=== PATIENT | male | born 1950 | race Caucasian/White ===

== ENCOUNTER 2019-03-16 15:04 | Inpatient (IN) | payer MEDICARE ==
[~2019-03-16] VITALS: Ht 185.4 cm; Wt 79.9 kg
[~2019-03-16 15:04] MED LIST: ACET325T26 PO; AMLO-150 PO; APIX5TAB PO; CHLO25TA PO; ENAL10TA PO; FLEC100T PO; HYDR-3343 PO; LABE100T6 PO
[2019-03-16] MEDS ORDERED: ONDANSETRON 2MG/ML, 2ML IVPush ONE (16:00)
[2019-03-16] MEDS ORDERED: morphine SULFATE 10 MG/ML, 1ML IVPush ONE (16:00)
[2019-03-16 16:04] LABS: MEAN CORPUSCULAR HEMOGLOBIN 28.8 pg (27.5-34.5); MEAN CORPUSCULAR HGB CONC 33.4 g/dL (33.2-36.2); MEAN PLATELET VOLUME 7.3 fL (7.4-10.4); PLATELET COUNT 372 x10^3/uL (130-400); RED BLOOD COUNT 4.56 x10^6/uL (4.38-5.82); RED CELL DISTRIBUTION WIDTH 14.8 % (9.4-14.8)
[2019-03-16 16:11] LABS: ALBUMIN 3.7 g/dL (3.4-5.0); ANION GAP 9 mmol/L (5-15); CALCIUM 9.4 mg/dL (8.5-10.1); CHLORIDE 109 mmol/L (98-107); CREATININE 1.46 mg/dL (0.7-1.3)
[2019-03-16] MEDS ORDERED: MORPHINE SULFATE 4 MG/ML, 1ML ONE (16:13)
[2019-03-16] MEDS ORDERED: ONDANSETRON 2MG/ML, 2ML ONE (16:13)
[2019-03-16 16:15] LABS: TROPONIN I < 0.015 ng/mL (0.000-0.045)
[2019-03-16 16:19] LABS: PROTHROMBIN TIME 10.5 Seconds (9.6-11.5)
[2019-03-16] MEDS ORDERED: LIDOCAINE 1%, 10ML ONE (16:20)
--- NOTE | 2019-03-16 16:23 | NUR ---
IR AT BEDSIDE FOR ANGIOGRAM PRE-EVAL. TO DO [facility] STUDY
[2019-03-16] MEDS ORDERED: FENTANYL PF 100 MCG/2ML ONE (16:38)
[2019-03-16] MEDS ORDERED: NALOXONE 1 MG/ML, 2ML ONE (16:39)
[2019-03-16] MEDS ORDERED: MIDAZOLAM 1 MG/ML, 5ML ONE (16:39)
[2019-03-16] MEDS ORDERED: NITROGLYCERIN 5 MG/ML, 10ML ONE (16:39)
[2019-03-16] MEDS ORDERED: FLUMAZENIL 0.1 MG/1 ML, 5ML ONE (16:39)
[2019-03-16] MEDS ORDERED: HEPARIN 1,000 UNITS/ML, 10ML ONE (16:39)
[2019-03-16] MEDS ORDERED: PROTAMINE SULFATE 10 MG/ML, 25ML ONE (16:39)
--- NOTE | 2019-03-16 16:39 | NUR ---
PT TO IR
[2019-03-16] MEDS ORDERED: hydrALAzine 20 MG/ML, 1ML ONE (16:54)
[2019-03-16] MEDS ORDERED: SODIUM CHLORIDE 0.9% 1,000 ML IV SCH (16:56)
[2019-03-16] MEDS ORDERED: ACETAMINOPHEN 325 MG TABLET PO PRN (17:00)
[2019-03-16] MEDS ORDERED: LABETALOL 5MG/ML, 20ML IVPush PRN (17:00)
[2019-03-16] MEDS ORDERED: hydrALAzine 20 MG/ML, 1ML IVPush PRN (17:00)
[2019-03-16] MEDS ORDERED: MORPHINE SULFATE 4 MG/ML, 1ML IVPush PRN (17:00)
[2019-03-16] MEDS ORDERED: HYDROcodone/APAP 5/325 TABLET PO PRN (17:00)
[2019-03-16] MEDS ORDERED: ONDANSETRON 2MG/ML, 2ML IVPush PRN ×2 (17:00→18:30)
[2019-03-16 17:02] LABS: MD YES
[2019-03-16 17:03] LABS: <PLATELET ESTIMATE> ADEQUATE; <PLT MORPHOLOGY> NORMAL PLT MORPH; ANISOCYTOSIS 1+; BAND#(MANUAL) 1.72 x10^3/uL; BANDS%(MANUAL) 14 % (0-7); LYMPH#(MANUAL) 1.35 x10^3/uL (1-3.4); LYMPHS% (MANUAL) 11 % (22-44); MONOS#(MANUAL) 0.49 x10^3/uL (0.3-2.7); MONOS% (MANUAL) 4 % (2-9); SEG#(MANUAL) 8.73 x10^3/uL (1.8-6.8); SEGS% (MANUAL) 71 % (42-75)
[2019-03-16] MEDS ORDERED: HEPARIN 5,000 UNITS/ML, 1ML ONE (17:20)
[2019-03-16] MEDS ORDERED: HEPARIN 25,000 UNITS/500ML PMX 500 ML ONE (17:21)
[2019-03-16] MEDS ORDERED: CATHFLO-ALTEPLASE 2 MG/2 ML CATHFLUSH ONE (17:30)
[2019-03-16] MEDS ORDERED: ALTEPLASE 10 MG in SODIUM CHLORIDE 0.9% 90 ML IV SCH (17:30)
[2019-03-16] MEDS ORDERED: ALTEPLASE IV ONE (18:00)
[2019-03-16] MEDS ORDERED: SODIUM CHLORIDE 0.9% IV ONE (18:00)
[2019-03-16] MEDS ORDERED: hydrALAzine 20 MG/ML, 1ML IV PRN (18:30)
[2019-03-16] MEDS ORDERED: morphine SULFATE 10 MG/ML, 1ML IVPush PRN (18:30)
[2019-03-16] MEDS ORDERED: HEPARIN 25,000 UNITS/500ML PMX 500 ML IV PRN (18:30)
[2019-03-16] MEDS: AMLODIPINE 5 MG TABLET PO SCH (19:29)
[2019-03-16] MEDS: FLECAINIDE 100MG TABLET PO SCH (19:29)
[2019-03-16] MEDS: ENALAPRIL 20MG TABLET PO SCH (19:29)
[2019-03-16] MEDS: CEFAZOLIN 2,000 MG in SODIUM CHLORIDE 0.9% 50 ML IV SCH (19:30)
[2019-03-16] MEDS: SODIUM CHLORIDE 0.9% 1,000 ML IV SCH (19:31)
[2019-03-16] MEDS ORDERED: LABETALOL 200 MG TABLET PO SCH (21:00)
[2019-03-16] MEDS ORDERED: ENALAPRIL 10 MG TABLET PO SCH (21:00)
[2019-03-16] MEDS: ALTEPLASE 10 MG in SODIUM CHLORIDE 0.9% 90 ML IV PRN (23:30)
[2019-03-16] MEDS: HYDROcodone/APAP 5/325 TABLET PO PRN (23:53)
[2019-03-17 00:27] LABS: BASOPHILS # (AUTO) 0.01 x10^3/uL (0-0.1); BASOPHILS % (AUTO) 0 % (0-1); EOSINOPHILS # (AUTO) 0.02 x10^3/uL (0-0.4); EOSINOPHILS % (AUTO) 0 % (1-7); LYMPHOCYTES # (AUTO) 1.56 x10^3/uL (1-3.4); LYMPHOCYTES % (AUTO) 22 % (22-44); MD NO; MEAN CORPUSCULAR HEMOGLOBIN 28.4 pg (27.5-34.5); MEAN CORPUSCULAR HGB CONC 32.4 g/dL (33.2-36.2); MEAN CORPUSCULAR VOLUME 87.5 fL (81-97); MEAN PLATELET VOLUME 7.3 fL (7.4-10.4); MONOCYTES # (AUTO) 0.85 x10^3/uL (0.2-0.8); MONOCYTES % (AUTO) 12 % (2-9); NEUTROPHILS # (AUTO) 4.65 x10^3/uL (1.8-6.8); NEUTROPHILS % (AUTO) 66 % (42-75); PLATELET COUNT 317 x10^3/uL (130-400); RED BLOOD COUNT 4.28 x10^6/uL (4.38-5.82); RED CELL DISTRIBUTION WIDTH 15.6 % (9.4-14.8)
[2019-03-17 00:58] LABS: PROTHROMBIN TIME 10.5 Seconds (9.6-11.5)
[2019-03-17] MEDS ORDERED: PROPOFOL 100 ML IV ONE (01:10)
[2019-03-17] MEDS: CEFAZOLIN 2,000 MG in SODIUM CHLORIDE 0.9% 50 ML IV SCH ×3 (03:25→21:04)
[2019-03-17] MEDS: SODIUM CHLORIDE 0.9% 1,000 ML IV SCH ×2 (05:56→15:04)
[2019-03-17 07:00] LABS: BASOPHILS # (AUTO) 0.02 x10^3/uL (0-0.1); BASOPHILS % (AUTO) 0 % (0-1); EOSINOPHILS # (AUTO) 0.13 x10^3/uL (0-0.4); EOSINOPHILS % (AUTO) 2 % (1-7); LYMPHOCYTES # (AUTO) 1.34 x10^3/uL (1-3.4); LYMPHOCYTES % (AUTO) 19 % (22-44); MD NO; MEAN CORPUSCULAR HGB CONC 32.7 g/dL (33.2-36.2); MEAN CORPUSCULAR VOLUME 88.6 fL (81-97); MEAN PLATELET VOLUME 7.2 fL (7.4-10.4); MONOCYTES # (AUTO) 0.84 x10^3/uL (0.2-0.8); MONOCYTES % (AUTO) 12 % (2-9); NEUTROPHILS # (AUTO) 4.88 x10^3/uL (1.8-6.8); NEUTROPHILS % (AUTO) 68 % (42-75); PLATELET COUNT 293 x10^3/uL (130-400); RED BLOOD COUNT 4.38 x10^6/uL (4.38-5.82); RED CELL DISTRIBUTION WIDTH 15.3 % (9.4-14.8)
[2019-03-17 07:07] LABS: ALANINE AMINOTRANSFERASE 36 U/L (12-78); ALBUMIN 3.4 g/dL (3.4-5.0); ANION GAP 11 mmol/L (5-15); CALCIUM 8.6 mg/dL (8.5-10.1); CHLORIDE 111 mmol/L (98-107); CREATININE 1.17 mg/dL (0.7-1.3); INTERNATIONAL NORMALIZED RATIO 1.03 (0.93-1.1); PROTHROMBIN TIME 10.8 Seconds (9.6-11.5)
[2019-03-17 07:09] LABS: ALKALINE PHOSPHATASE 69 U/L (45-117); BILIRUBIN,TOTAL 0.5 mg/dL (0.2-1.0); TOTAL PROTEIN 6.7 g/dL (6.4-8.2)
[2019-03-17] MEDS: ENALAPRIL 20MG TABLET PO SCH ×2 (08:20→21:03)
[2019-03-17] MEDS: FLECAINIDE 100MG TABLET PO SCH ×2 (08:20→21:03)
[2019-03-17] MEDS: AMLODIPINE 5 MG TABLET PO SCH ×2 (08:21→21:03)
[2019-03-17] MEDS ORDERED: AMLODIPINE 5 MG TABLET PO SCH (09:00)
[2019-03-17] MEDS ORDERED: CHLORTHALIDONE 25 MG TABLET PO SCH (09:00)
[2019-03-17] MEDS: ALTEPLASE 10 MG in SODIUM CHLORIDE 0.9% 90 ML IV PRN (09:29)
[2019-03-17 13:01] LABS: BASOPHILS # (AUTO) 0.02 x10^3/uL (0-0.1); BASOPHILS % (AUTO) 0 % (0-1); EOSINOPHILS # (AUTO) 0.07 x10^3/uL (0-0.4); EOSINOPHILS % (AUTO) 1 % (1-7); LYMPHOCYTES # (AUTO) 1.45 x10^3/uL (1-3.4); LYMPHOCYTES % (AUTO) 18 % (22-44); MD NO; MEAN CORPUSCULAR HEMOGLOBIN 28.4 pg (27.5-34.5); MEAN CORPUSCULAR HGB CONC 32.9 g/dL (33.2-36.2); MEAN CORPUSCULAR VOLUME 86.2 fL (81-97); MEAN PLATELET VOLUME 7.1 fL (7.4-10.4); MONOCYTES # (AUTO) 0.89 x10^3/uL (0.2-0.8); MONOCYTES % (AUTO) 11 % (2-9); NEUTROPHILS # (AUTO) 5.49 x10^3/uL (1.8-6.8); NEUTROPHILS % (AUTO) 69 % (42-75); PLATELET COUNT 316 x10^3/uL (130-400); RED BLOOD COUNT 4.37 x10^6/uL (4.38-5.82); RED CELL DISTRIBUTION WIDTH 15.2 % (9.4-14.8)
[2019-03-17 13:27] LABS: INTERNATIONAL NORMALIZED RATIO 0.98 (0.93-1.1); PROTHROMBIN TIME 10.3 Seconds (9.6-11.5)
[2019-03-17] MEDS ORDERED: MIDAZOLAM 1 MG/ML, 5ML ONE (16:46)
[2019-03-17] MEDS ORDERED: FENTANYL PF 100 MCG/2ML ONE (16:46)
[2019-03-17] MEDS ORDERED: FLUMAZENIL 0.1 MG/1 ML, 5ML ONE (16:46)
[2019-03-17] MEDS ORDERED: NALOXONE 1 MG/ML, 2ML ONE (16:47)
[2019-03-17] MEDS ORDERED: HEPARIN 1,000 UNITS/ML, 10ML ONE (16:47)
[2019-03-17] MEDS ORDERED: PROTAMINE SULFATE 10 MG/ML, 25ML ONE (16:47)
[2019-03-17] MEDS ORDERED: SODIUM CHLORIDE 0.9% 1,000 ML IV SCH (16:56)
[2019-03-17] MEDS ORDERED: VISIPAQUE 270 MG/ML, 50ML BOTTLE ONE (17:00)
[2019-03-17] MEDS ORDERED: LIDOCAINE 1%, 10ML ONE (17:11)
[2019-03-17] MEDS ORDERED: hydrALAzine 20 MG/ML, 1ML ONE (17:34)
[2019-03-17] MEDS ORDERED: HEPARIN 5,000 UNITS/ML, 1ML IV ONE (19:00)
[2019-03-17] MEDS ORDERED: HEPARIN 5,000 UNITS/ML, 1ML IV PRN (19:00)
[2019-03-17] MEDS ORDERED: HEPARIN wt. based STROKE protocol MC SCH (19:00)
[2019-03-17] MEDS ORDERED: HEPARIN 25,000 UNITS/500ML PMX 500 ML IV PRN (19:00)
[2019-03-17] MEDS ORDERED: DO NOT GIVE XX PRN (19:00)
[2019-03-17] MEDS ORDERED: WARFARIN 5 MG TABLET PO-COUM ONE (19:30)
[2019-03-17] MEDS ORDERED: HEPARIN wt. based STROKE protocol MC PRN (19:30)
[2019-03-17] MEDS: HEPARIN 25,000 UNITS/500ML PMX 500 ML IV PRN (21:28)
[2019-03-17] MEDS: HYDROcodone/APAP 5/325 TABLET PO PRN (22:05)
[2019-03-18 03:34] LABS: BASOPHILS # (AUTO) 0.01 x10^3/uL (0-0.1); BASOPHILS % (AUTO) 0 % (0-1); EOSINOPHILS # (AUTO) 0.08 x10^3/uL (0-0.4); EOSINOPHILS % (AUTO) 1 % (1-7); LYMPHOCYTES # (AUTO) 1.76 x10^3/uL (1-3.4); LYMPHOCYTES % (AUTO) 25 % (22-44); MD NO; MEAN CORPUSCULAR HEMOGLOBIN 28.8 pg (27.5-34.5); MEAN CORPUSCULAR HGB CONC 32.7 g/dL (33.2-36.2); MEAN CORPUSCULAR VOLUME 87.9 fL (81-97); MEAN PLATELET VOLUME 7.4 fL (7.4-10.4); MONOCYTES # (AUTO) 0.85 x10^3/uL (0.2-0.8); MONOCYTES % (AUTO) 12 % (2-9); NEUTROPHILS # (AUTO) 4.35 x10^3/uL (1.8-6.8); NEUTROPHILS % (AUTO) 62 % (42-75); PLATELET COUNT 301 x10^3/uL (130-400); RED BLOOD COUNT 4.17 x10^6/uL (4.38-5.82); RED CELL DISTRIBUTION WIDTH 15.5 % (9.4-14.8)
[2019-03-18 03:43] LABS: INTERNATIONAL NORMALIZED RATIO 1.06 (0.93-1.1); PROTHROMBIN TIME 11.1 Seconds (9.6-11.5)
[2019-03-18 03:48] LABS: ALANINE AMINOTRANSFERASE 27 U/L (12-78); ANION GAP 8 mmol/L (5-15); CALCIUM 8.7 mg/dL (8.5-10.1); CHLORIDE 112 mmol/L (98-107)
[2019-03-18 03:50] LABS: ALKALINE PHOSPHATASE 67 U/L (45-117); BILIRUBIN,TOTAL 0.8 mg/dL (0.2-1.0); CREATININE 1.14 mg/dL (0.7-1.3); TOTAL PROTEIN 6.5 g/dL (6.4-8.2)
[2019-03-18] MEDS: CEFAZOLIN 2,000 MG in SODIUM CHLORIDE 0.9% 50 ML IV SCH ×2 (04:39→11:47)
[2019-03-18] MEDS: SODIUM CHLORIDE 0.9% 1,000 ML IV SCH (07:39)
[2019-03-18] MEDS: ENALAPRIL 20MG TABLET PO SCH ×2 (07:40→19:39)
[2019-03-18] MEDS: FLECAINIDE 100MG TABLET PO SCH ×2 (07:40→19:39)
[2019-03-18] MEDS: AMLODIPINE 5 MG TABLET PO SCH ×2 (07:40→19:39)
[2019-03-18] MEDS: LABETALOL 200 MG TABLET PO SCH (15:34)
[2019-03-18] MEDS ORDERED: MORPHINE SULFATE 4 MG/ML, 1ML IVPush PRN (18:00)
[2019-03-18] MEDS ORDERED: WARFARIN 5 MG TABLET PO-COUM SCH (18:00)
[2019-03-18] MEDS: HEPARIN 25,000 UNITS/500ML PMX 500 ML IV PRN (19:48)
[2019-03-18] MEDS: HYDROcodone/APAP 5/325 TABLET PO PRN ×2 (19:51→23:17)
[2019-03-19 01:04] LABS: BASOPHILS # (AUTO) 0.01 x10^3/uL (0-0.1); BASOPHILS % (AUTO) 0 % (0-1); EOSINOPHILS % (AUTO) 2 % (1-7); LYMPHOCYTES # (AUTO) 1.83 x10^3/uL (1-3.4); LYMPHOCYTES % (AUTO) 30 % (22-44); MD NO; MEAN CORPUSCULAR HEMOGLOBIN 29.1 pg (27.5-34.5); MEAN CORPUSCULAR HGB CONC 33.1 g/dL (33.2-36.2); MEAN CORPUSCULAR VOLUME 87.7 fL (81-97); MEAN PLATELET VOLUME 7.2 fL (7.4-10.4); MONOCYTES # (AUTO) 0.77 x10^3/uL (0.2-0.8); MONOCYTES % (AUTO) 13 % (2-9); NEUTROPHILS # (AUTO) 3.37 x10^3/uL (1.8-6.8); NEUTROPHILS % (AUTO) 56 % (42-75); PLATELET COUNT 299 x10^3/uL (130-400); RED BLOOD COUNT 3.71 x10^6/uL (4.38-5.82); RED CELL DISTRIBUTION WIDTH 14.8 % (9.4-14.8)
[2019-03-19 01:14] LABS: ANION GAP 6 mmol/L (5-15); CALCIUM 8.4 mg/dL (8.5-10.1); CHLORIDE 109 mmol/L (98-107); CREATININE 1.21 mg/dL (0.7-1.3)
[2019-03-19 01:33] LABS: INTERNATIONAL NORMALIZED RATIO 1.96 (0.93-1.1); PROTHROMBIN TIME 20.1 Seconds (9.6-11.5)
[2019-03-19] MEDS: LABETALOL 200 MG TABLET PO SCH ×2 (08:02→17:35)
[2019-03-19] MEDS: FLECAINIDE 100MG TABLET PO SCH ×2 (08:02→19:33)
[2019-03-19] MEDS: AMLODIPINE 5 MG TABLET PO SCH ×2 (08:46→19:32)
[2019-03-19] MEDS: CHLORTHALIDONE 25 MG TABLET PO SCH (08:46)
[2019-03-19] MEDS: ENALAPRIL 20MG TABLET PO SCH ×2 (08:47→19:33)
[2019-03-19] MEDS ORDERED: WARFARIN 1 MG TABLET PO-COUM ONE (16:17)
[2019-03-19] MEDS: HEPARIN 25,000 UNITS/500ML PMX 500 ML IV PRN (16:38)
[2019-03-19] MEDS ORDERED: WARFARIN 2.5 MG TABLET PO-COUM SCH (18:00)
[2019-03-19] MEDS ORDERED: CALCIUM CARBONATE 500 MG TAB.CHEW PO PRN (19:00)
[2019-03-20 04:32] LABS: BASOPHILS # (AUTO) 0.02 x10^3/uL (0-0.1); BASOPHILS % (AUTO) 0 % (0-1); EOSINOPHILS # (AUTO) 0.23 x10^3/uL (0-0.4); EOSINOPHILS % (AUTO) 3 % (1-7); LYMPHOCYTES # (AUTO) 1.78 x10^3/uL (1-3.4); LYMPHOCYTES % (AUTO) 27 % (22-44); MD NO; MEAN CORPUSCULAR VOLUME 87.8 fL (81-97); MEAN PLATELET VOLUME 7.8 fL (7.4-10.4); MONOCYTES # (AUTO) 0.63 x10^3/uL (0.2-0.8); MONOCYTES % (AUTO) 9 % (2-9); NEUTROPHILS # (AUTO) 3.99 x10^3/uL (1.8-6.8); NEUTROPHILS % (AUTO) 60 % (42-75); PLATELET COUNT 305 x10^3/uL (130-400); RED CELL DISTRIBUTION WIDTH 15.3 % (9.4-14.8)
[2019-03-20 04:40] LABS: INTERNATIONAL NORMALIZED RATIO 1.96 (0.93-1.1); PROTHROMBIN TIME 20.1 Seconds (9.6-11.5)
[2019-03-20 04:45] LABS: ANION GAP 7 mmol/L (5-15); CHLORIDE 108 mmol/L (98-107); CREATININE 1.31 mg/dL (0.7-1.3)
[2019-03-20] MEDS: FLECAINIDE 100MG TABLET PO SCH ×2 (07:46→21:44)
[2019-03-20] MEDS: LABETALOL 200 MG TABLET PO SCH ×2 (07:46→18:20)
[2019-03-20] MEDS: CHLORTHALIDONE 25 MG TABLET PO SCH (09:14)
[2019-03-20] MEDS: AMLODIPINE 5 MG TABLET PO SCH ×2 (09:15→21:44)
[2019-03-20] MEDS: ENALAPRIL 20MG TABLET PO SCH ×2 (09:15→21:44)
[2019-03-20] MEDS: HEPARIN 25,000 UNITS/500ML PMX 500 ML IV PRN (09:21)
[2019-03-20] MEDS ORDERED: WARFARIN 5 MG TABLET PO-COUM SCH (18:00)
[2019-03-20 20:13] VITALS: BP 127/58
[2019-03-20 21:33] VITALS: BP 127/51
[2019-03-20 22:43] VITALS: BP 126/61
[2019-03-21] VITALS (8 sets, daily range): BP systolic 104–160; BP diastolic 49–68
[2019-03-21] MEDS: HEPARIN 25,000 UNITS/500ML PMX 500 ML IV PRN ×2 (03:02→20:36)
[2019-03-21 05:28] LABS: BASOPHILS # (AUTO) 0.02 x10^3/uL (0-0.1); BASOPHILS % (AUTO) 0 % (0-1); EOSINOPHILS # (AUTO) 0.16 x10^3/uL (0-0.4); EOSINOPHILS % (AUTO) 2 % (1-7); LYMPHOCYTES % (AUTO) 26 % (22-44); MD NO; MEAN CORPUSCULAR HEMOGLOBIN 28.4 pg (27.5-34.5); MEAN CORPUSCULAR VOLUME 86.1 fL (81-97); MEAN PLATELET VOLUME 7.5 fL (7.4-10.4); MONOCYTES # (AUTO) 0.54 x10^3/uL (0.2-0.8); MONOCYTES % (AUTO) 8 % (2-9); NEUTROPHILS # (AUTO) 4.51 x10^3/uL (1.8-6.8); NEUTROPHILS % (AUTO) 64 % (42-75); PLATELET COUNT 325 x10^3/uL (130-400); RED BLOOD COUNT 3.93 x10^6/uL (4.38-5.82); RED CELL DISTRIBUTION WIDTH 15.3 % (9.4-14.8)
[2019-03-21 05:39] LABS: ANION GAP 9 mmol/L (5-15); CALCIUM 9.3 mg/dL (8.5-10.1); CHLORIDE 108 mmol/L (98-107)
[2019-03-21 05:56] LABS: INTERNATIONAL NORMALIZED RATIO 1.94 (0.93-1.1); PROTHROMBIN TIME 19.9 Seconds (9.6-11.5)
[2019-03-21] MEDS: FLECAINIDE 100MG TABLET PO SCH ×2 (08:43→19:57)
[2019-03-21] MEDS: LABETALOL 200 MG TABLET PO SCH ×2 (08:45→17:23)
[2019-03-21] MEDS: AMLODIPINE 5 MG TABLET PO SCH ×3 (08:45→20:27)
[2019-03-21] MEDS: CHLORTHALIDONE 25 MG TABLET PO SCH (08:46)
[2019-03-21] MEDS: ENALAPRIL 20MG TABLET PO SCH ×3 (08:46→22:25)
[2019-03-21] MEDS ORDERED: HEPARIN 5,000 UNITS/ML, 1ML IV PRN (09:00)
[2019-03-21] MEDS ORDERED: HEPARIN 5,000 UNITS/ML, 1ML IV ONE (09:00)
[2019-03-21 15:25] LABS: TROPONIN I < 0.015 ng/mL (0.000-0.045)
[2019-03-21] MEDS ORDERED: WARFARIN 7.5 MG TABLET PO-COUM ONE (18:00)
[2019-03-21 20:26] LABS: TROPONIN I < 0.015 ng/mL (0.000-0.045)
[2019-03-22 01:20] VITALS: BP 123/55
[2019-03-22 01:31] LABS: TROPONIN I < 0.015 ng/mL (0.000-0.045)
[2019-03-22 06:54] VITALS: BP 131/54
[2019-03-22 07:20] LABS: BASOPHILS # (AUTO) 0.02 x10^3/uL (0-0.1); BASOPHILS % (AUTO) 0 % (0-1); EOSINOPHILS # (AUTO) 0.18 x10^3/uL (0-0.4); EOSINOPHILS % (AUTO) 2 % (1-7); LYMPHOCYTES # (AUTO) 1.74 x10^3/uL (1-3.4); LYMPHOCYTES % (AUTO) 23 % (22-44); MD NO; MEAN CORPUSCULAR HEMOGLOBIN 28.7 pg (27.5-34.5); MEAN CORPUSCULAR VOLUME 87.1 fL (81-97); MEAN PLATELET VOLUME 7.8 fL (7.4-10.4); MONOCYTES % (AUTO) 8 % (2-9); NEUTROPHILS # (AUTO) 5.04 x10^3/uL (1.8-6.8); NEUTROPHILS % (AUTO) 67 % (42-75); PLATELET COUNT 337 x10^3/uL (130-400); RED BLOOD COUNT 3.74 x10^6/uL (4.38-5.82); RED CELL DISTRIBUTION WIDTH 15.3 % (9.4-14.8)
[2019-03-22 07:30] LABS: ANION GAP 9 mmol/L (5-15); CALCIUM 9.1 mg/dL (8.5-10.1); CHLORIDE 104 mmol/L (98-107)
[2019-03-22 07:31] LABS: CREATININE 1.68 mg/dL (0.7-1.3)
[2019-03-22 08:19] LABS: INTERNATIONAL NORMALIZED RATIO 3.65 (0.93-1.1); PROTHROMBIN TIME 36.5 Seconds (9.6-11.5)
[2019-03-22] MEDS: LABETALOL 200 MG TABLET PO SCH ×2 (08:57→18:14)
[2019-03-22] MEDS: FLECAINIDE 100MG TABLET PO SCH ×2 (08:57→20:33)
[2019-03-22] MEDS: CHLORTHALIDONE 25 MG TABLET PO SCH (08:58)
[2019-03-22] MEDS: ENALAPRIL 20MG TABLET PO SCH ×2 (08:58→20:32)
[2019-03-22] MEDS: AMLODIPINE 5 MG TABLET PO SCH ×2 (08:58→20:33)
[2019-03-22] MEDS ORDERED: FLU VACC QS2019-20 36MOS UP/PF 0.5 ML IM-VACC ONE (10:30)
[2019-03-22] MEDS ORDERED: HOLD COUMADIN MC PRN (12:00)
[2019-03-22 12:24] VITALS: BP 116/52
[2019-03-22] MEDS: HEPARIN 25,000 UNITS/500ML PMX 500 ML IV PRN (15:26)
[2019-03-22 18:15] VITALS: BP 120/56
[2019-03-22 19:44] VITALS: BP 115/57
[2019-03-22 20:26] VITALS: BP 127/55
[2019-03-23 01:20] VITALS: BP 105/50
[2019-03-23 05:39] LABS: INTERNATIONAL NORMALIZED RATIO 3.5 (0.93-1.1)
[2019-03-23 07:03] VITALS: BP 128/51
[2019-03-23] MEDS ORDERED: WARF1TAB PO (07:32)
[2019-03-23] MEDS ORDERED: AMLO-150 PO (07:32)
[2019-03-23] MEDS ORDERED: HOLD COUMADIN MC PRN (08:30)
[2019-03-23] MEDS: AMLODIPINE 5 MG TABLET PO SCH (09:13)
[2019-03-23] MEDS: FLECAINIDE 100MG TABLET PO SCH (09:13)
[2019-03-23] MEDS: ENALAPRIL 20MG TABLET PO SCH (09:13)
[2019-03-23] MEDS: LABETALOL 200 MG TABLET PO SCH (09:13)
[2019-03-23] MEDS: CHLORTHALIDONE 25 MG TABLET PO SCH (09:14)
== END 2019-03-23 11:25 | disposition home health service (06) | DRG 252 ==
LOC: ED 16:23 → EDIP 16:24 → ED 16:35 → CCU 17:46 → 4WST 03-20 19:36 → DCLOUNGE 03-23 11:04
PROVIDERS: ADMIT Internal Medicine; ATTEND Internal Medicine
PROC: 047J3DZ Dilation of Left External Iliac Artery with Intraluminal Device, Percutaneous Approach (ICD-10-PCS; principal; 2019-03-16)
PROC: B44FZZZ Ultrasonography of Right Lower Extremity Arteries (ICD-10-PCS; 2019-03-16)
PROC: 04HN33Z Insertion of Infusion Device into Left Popliteal Artery, Percutaneous Approach (ICD-10-PCS; 2019-03-16)
PROC: 3E05317 Introduction of Other Thrombolytic into Peripheral Artery, Percutaneous Approach (ICD-10-PCS; 2019-03-16)
PROC: B41DYZZ Fluoroscopy of Aorta and Bilateral Lower Extremity Arteries using Other Contrast (ICD-10-PCS; 2019-03-16)
PROC: 047L3Z1 Dilation of Left Femoral Artery using Drug-Coated Balloon, Percutaneous Approach (ICD-10-PCS; 2019-03-17)
PROC: B41GYZZ Fluoroscopy of Left Lower Extremity Arteries using Other Contrast (ICD-10-PCS; 2019-03-17)
PROC: B41FYZZ Fluoroscopy of Right Lower Extremity Arteries using Other Contrast (ICD-10-PCS; 2019-03-17)
DX: I74.3 Embolism and thrombosis of arteries of the lower extremities (principal); N17.0 Acute kidney failure with tubular necrosis; D68.69 Other thrombophilia; E87.2 Acidosis; I74.5 Embolism and thrombosis of iliac artery; D64.9 Anemia, unspecified; D72.829 Elevated white blood cell count, unspecified; F12.90 Cannabis use, unspecified, uncomplicated; I49.5 Sick sinus syndrome; I12.9 Hypertensive chronic kidney disease with stage 1 through stage 4 chronic kidney disease, or unspecified chronic kidney disease; I48.0 Paroxysmal atrial fibrillation; I99.8 Other disorder of circulatory system; N18.9 Chronic kidney disease, unspecified; Z66 Do not resuscitate; Z82.49 Family history of ischemic heart disease and other diseases of the circulatory system; Z87.891 Personal history of nicotine dependence; Z95.0 Presence of cardiac pacemaker
CPT/HCPCS: 36247; 36415; 37211; 37214; 37221; 37224; 71045; 75625; 75630; 75710; 80048; 80053; 82040; 84484; 85025; 85384; 85520; 85610; 85730; 87081; 90686; 93005; 99156; 99157; 99285; G0378; J0690; J1644; J2250; J2405; J2720; J2997; J3010; Q9966; C1751; C1760; C1769; C1876; C1894; C2623; J0360; J2270; J2310; J7030

== ENCOUNTER 2019-03-24 11:08 | Outpatient (CLI) | payer MEDICARE ==
[~2019-03-24 11:08] MED LIST changes: +WARF1TAB PO
[2019-03-24 13:02] LABS: INTERNATIONAL NORMALIZED RATIO 2.54 (0.93-1.1); PROTHROMBIN TIME 25.7 Seconds (9.6-11.5)
== END 2019-03-24 23:59 | disposition home or self-care (01) ==
LOC: CFH 11:08
PROVIDERS: ATTEND Internal Medicine Cardiovascular Disease
DX: I48.0 Paroxysmal atrial fibrillation (principal); E87.6 Hypokalemia; I16.0 Hypertensive urgency; N17.0 Acute kidney failure with tubular necrosis; R07.9 Chest pain, unspecified
CPT/HCPCS: 36415; 85610

== ENCOUNTER → 2019-05-10 | Outpatient (CLI) | payer MEDICARE ==
[2019-05-10 13:05] LABS: INTERNATIONAL NORMALIZED RATIO 1.17 (0.93-1.1); PROTHROMBIN TIME 12.2 Seconds (9.6-11.5)
== END | disposition home or self-care (01) ==
LOC: CFH 09:29
PROVIDERS: ATTEND Internal Medicine Cardiovascular Disease
DX: I48.0 Paroxysmal atrial fibrillation (principal); F12.10 Cannabis abuse, uncomplicated; Z79.01 Long term (current) use of anticoagulants; Z87.891 Personal history of nicotine dependence
CPT/HCPCS: 36415; 85610

== ENCOUNTER → 2019-05-23 | Outpatient (CLI) | payer MEDICARE ==
[2019-05-23 12:47] LABS: INTERNATIONAL NORMALIZED RATIO 1.49 (0.93-1.1); PROTHROMBIN TIME 15.4 Seconds (9.6-11.5)
== END | disposition home or self-care (01) ==
LOC: CFH 09:50
PROVIDERS: ATTEND Internal Medicine Cardiovascular Disease
DX: I48.0 Paroxysmal atrial fibrillation (principal); F12.10 Cannabis abuse, uncomplicated; Z79.01 Long term (current) use of anticoagulants; Z87.891 Personal history of nicotine dependence
CPT/HCPCS: 36415; 85610

== ENCOUNTER 2019-06-06 09:58 | Outpatient (CLI) | payer MEDICARE ==
[2019-06-06 13:24] LABS: INTERNATIONAL NORMALIZED RATIO 2.12 (0.93-1.1); PROTHROMBIN TIME 21.6 Seconds (9.6-11.5)
== END 2019-06-06 23:59 | disposition home or self-care (01) ==
LOC: CFH 09:58
PROVIDERS: ATTEND Internal Medicine Cardiovascular Disease
DX: I48.0 Paroxysmal atrial fibrillation (principal); Z79.01 Long term (current) use of anticoagulants
CPT/HCPCS: 36415; 85610

== ENCOUNTER → 2019-07-04 | Outpatient (CLI) | payer MEDICARE ==
[2019-07-04 12:54] LABS: INTERNATIONAL NORMALIZED RATIO 1.79 (0.93-1.1); PROTHROMBIN TIME 19.1 Seconds (9.6-11.5)
== END | disposition home or self-care (01) ==
LOC: CFH 09:50
PROVIDERS: ATTEND Internal Medicine Cardiovascular Disease
DX: I48.0 Paroxysmal atrial fibrillation (principal)
CPT/HCPCS: 36415; 85610

== ENCOUNTER → 2019-08-01 | Outpatient (CLI) | payer MEDICARE ==
[2019-08-01 12:57] LABS: INTERNATIONAL NORMALIZED RATIO 1.84 (0.93-1.1); PROTHROMBIN TIME 19.6 Seconds (9.6-11.5)
== END | disposition home or self-care (01) ==
LOC: CFH 09:26
PROVIDERS: ATTEND Internal Medicine Cardiovascular Disease
DX: I48.0 Paroxysmal atrial fibrillation (principal); Z79.01 Long term (current) use of anticoagulants
CPT/HCPCS: 36415; 85610

== ENCOUNTER 2019-09-06 09:42 | Outpatient (CLI) | payer MEDICARE ==
[2019-09-06 12:42] LABS: INTERNATIONAL NORMALIZED RATIO 1.74 (0.93-1.1); PROTHROMBIN TIME 18.5 Seconds (9.6-11.5)
== END 2019-09-06 23:59 | disposition home or self-care (01) ==
LOC: CFH 09:42 → CVU 23:59
PROVIDERS: ATTEND Internal Medicine Cardiovascular Disease
DX: I65.23 Occlusion and stenosis of bilateral carotid arteries (principal); I48.0 Paroxysmal atrial fibrillation; Z79.01 Long term (current) use of anticoagulants
CPT/HCPCS: 36415; 85610; 93880

== ENCOUNTER → 2019-10-03 | Outpatient (CLI) | payer MEDICARE ==
[2019-10-03 13:09] LABS: INTERNATIONAL NORMALIZED RATIO 1.6 (0.93-1.1)
== END | disposition home or self-care (01) ==
LOC: CFH 08:58
PROVIDERS: ATTEND Internal Medicine Cardiovascular Disease
DX: I48.0 Paroxysmal atrial fibrillation (principal); Z79.01 Long term (current) use of anticoagulants
CPT/HCPCS: 36415; 85610

== ENCOUNTER 2019-11-14 08:46 | Outpatient (CLI) | payer MEDICARE ==
[~2019-11-14 08:46] MED LIST changes: -WARF1TAB PO; +WARF1TAB2 PO
[2019-11-14 13:04] LABS: INTERNATIONAL NORMALIZED RATIO 1.82 (0.93-1.1); PROTHROMBIN TIME 19.4 Seconds (9.6-11.5)
== END 2019-11-14 23:59 | disposition home or self-care (01) ==
LOC: CFH 08:46
PROVIDERS: ATTEND Internal Medicine Cardiovascular Disease
DX: I48.0 Paroxysmal atrial fibrillation (principal); Z79.01 Long term (current) use of anticoagulants
CPT/HCPCS: 36415; 85610

== ENCOUNTER → 2019-11-21 | Outpatient (CLI) | payer MEDICARE ==
[2019-11-21 13:03] LABS: INTERNATIONAL NORMALIZED RATIO 2.44 (0.93-1.1); PROTHROMBIN TIME 26.1 Seconds (9.6-11.5)
== END | disposition home or self-care (01) ==
LOC: CFH 08:35
PROVIDERS: ATTEND Internal Medicine Cardiovascular Disease
DX: I48.0 Paroxysmal atrial fibrillation (principal); Z79.01 Long term (current) use of anticoagulants
CPT/HCPCS: 36415; 85610